=== PATIENT | female | born 1990 | race Caucasian/White ===

== ENCOUNTER 2018-12-24 19:04 | Inpatient (IN) ==
[2018-12-24] MEDS ORDERED: OXYTOCIN 30 UNITS/500 ML BAG IV PRN (20:32)
[2018-12-24] MEDS ORDERED: LACTATED RINGER'S 1,000 ML IV PRN ×2 (20:32→22:14)
--- NOTE | 2018-12-24 20:38 | History & Physical Report ---
Date of Service December 24, 2018 Assessment & Plan (1) Uterine contractions at greater than 20 weeks of gestation: 28 yo at 38.6 wks with painful ctxs, cervical change VSS Afebrile, FHR reassuring GBS negative Plan admit, labs, IVF, Monitor, epidural for pain History of Present Illness Chief Complaint: Contractions Primary Care Provider: Laura Tong PA-C Patient is a 28 yo at 38.6 wks who has been feeling ctxs since 2 pm this afternoon She ws in offcie and was checked by APOORVA [facility]. Her cervix was 1/ 20%/ -3 She was sent home Contractions got closer and more painful after 5 pm Pain is 8/10 No LOF/VB +FM Her has been uncomplicated GBS negative Her cervix changed from 1 /40% to 3/ 70%/ -2 with bulging bag in1 hour here She desires epidural for pain Allergies Allergy/AdvReac Type Severity Reaction Status Date / Time hydrocodone AdvReac Intermediate vomiting Verified 12/14/18 13:15 Home Medications Home Medications Medication Instructions Recorded Confirmed Type vit no.[id number] 1 tab PO DAILY 12/14/18 12/14/18 History [ Vitamin] Patient History Medical History Pelvic adnexal fluid collection Pelvic pain Positive test No significant active problems Surgical History S/P D&C (status post dilation and curettage) S/P wisdom tooth extraction Social History Preferred Language: Upper Sorbian Communication Ability: Effective Visual Impairment: No Limitations Beliefs That Will Affect Care: None marital status: Current Living Situation: Spouse Current Living Situation Comment: charlie batista 8 yo [employer] and daughter Feels Safe at Home: Yes Safety Concerns: Feels Safe At This Time Smoking Status: Never smoker Tobacco Type: smokeless tobacco Second Hand Exposure: No Hx Alcohol Use: No Hx Substance Use: No OB History FT in 2016 [employer] History No h/o any STD's Review of Systems All systems reviewed & are unremarkable except as noted in HPI & below Physical Exam Constitutional: WD/WN, vitals as above well developed and + acute distress Results & Data Vital Signs (Past 12 Hours) Vital Signs Pulse Resp BP 12/24/18 19:28 18 12/24/18 19:16 95 H 109/64 Monitoring External Monitor Categ I Tocodynamometer Ctxs q 2-3 min
[2018-12-24] MEDS ORDERED: LACTATED RINGER'S 1,000 ML IV SCH (20:45)
[2018-12-24] MEDS ORDERED: BUPIVACAINE 0.25% 30 ML VIAL ONE (20:53)
[2018-12-24] MEDS ORDERED: fentaNYL 2MCG/ML ROPIV 1.25MG/ML 100 ML BAG EPI ONE (20:54)
[2018-12-24] MEDS ORDERED: fentaNYL citrate 100 MCG/2 ML VIAL ONE (20:54)
[2018-12-24] MEDS ORDERED: ePHEDrine sulfate 50 MG/ML AMP ONE (20:54)
[2018-12-24 21:32] LABS: Hematocrit (blood only) 32.6 % (37-47); Hemoglobin 11.1 g/dL (12.0-16.0); Mean Corpuscular Volume 91.8 fL (80-100); Mean Platelet Volume 11.2 fL (7.4-10.4); Platelet Count 177 K/uL (130-400); RDW Coefficient of Variation 14.1 % (11.5-14.5); RDW Standard Deviation 47.1 fL (36.4-46.3); Red Blood Count 3.55 M/uL (4.2-5.4); White Blood Count 14.02 K/uL (4.8-10.8)
--- NOTE | 2018-12-24 21:48 | Anesthesiology Consultation ---
Date of Service December 24, 2018 Assessment & Plan Chart Review Chart Review: Patient NOT seen in Pre Admission Testing and Acceptable Risk for Labor Epidural Consults Requested none ASA ASA2 Proposed Anesthesia Anesthesia Type: Labor Epidural Risk / Benefits Reviewed With: PT / POA / Parent / Guardian, Accepts Plan and Informed Consent Obtained History Height/Weight Height: 5 ft 7 in Weight: 80.286 kg Allergies Allergy/AdvReac Type Severity Reaction Status Date / Time hydrocodone AdvReac Intermediate vomiting Verified 12/14/18 13:15 Medications Home Medications Medication Instructions Recorded Confirmed Last Taken vit no.[id number] 1 tab PO DAILY 12/14/18 12/24/18 12/24/18 09:00 [ Vitamin] Active Medications Generic Name Dose Route Start Last Admin Trade Name Freq PRN Reason Stop Dose Admin Lactated Ringer's 1,000 mls @ 999 mls/hr 12/24/18 20:32 12/24/18 21:38 Lr IV 01/23/19 20:31 Infused .Q1H1M PRN Infusion Pre-Anesthesia Lactated Ringer's 1,000 mls @ 150 mls/hr 12/24/18 20:45 12/24/18 21:37 Lr IV 12/26/18 20:44 150 mls/hr .Q6H40M JUVENCIO Administration NPO Date Last Intake of Fluids: 12/24/18 Time Last Intake of Fluids: 17:00 Date Last Intake of Solids: 12/24/18 Time Last Intake of Solids: 17:00 Past Medical History Medical History Pelvic adnexal fluid collection Pelvic pain Positive test No significant active problems Exercise / Class Metabolic Activity II 4-5 Yardwork/Stairs/Walk up hill Past Surgical History Surgical History S/P D&C (status post dilation and curettage) S/P wisdom tooth extraction Past Anesthesia History No Hx of Anesthesia Complications and No Family Hx of Anesthesia Complications History of PONV No Hx of PONV and No Hx of Motion Sickness Social History Smoking Status: Never smoker tobacco type: smokeless tobacco Hx Alcohol Use: No Alcohol type: wine alcohol intake frequency: a few times a week Hx Substance Use: No substance use type: does not use Physical Exam Vital Signs Last Vital Signs Pulse 92 H 12/24/18 21:42 Resp 18 12/24/18 19:28 BP 109/64 12/24/18 19:16 Pulse Ox 100 12/24/18 21:42 Constitutional + obese ENMT Mouth: no dentition abnormality Thyromental Distance: > or= 3.5 Finger Breadths Mallampati Class: II Neck normal visual inspection and trachea midline; neck extension not limited Respiratory normal respiratory effort Auscultation: lungs clear to auscultation bilaterally Cardiovascular Rate/Rhythm: regular rate and regular rhythm Heart Sounds: no murmur Musculoskeletal Spine: lumbar spine normal to inspection; normal cervical ROM Neurologic moves all extremities Motor/Sensory: no sensory deficit Psychiatric Orientation: alert and oriented x 3 Testing Laboratory Results 12/24/18 20:51
[2018-12-24] MEDS ORDERED: fentaNYL 2MCG/ML ROPIV 1.25MG/ML 100 ML BAG EPI PRN (22:14)
[2018-12-24] MEDS ORDERED: NALOXONE HCL 0.4 MG/1 ML VIAL/CARP IV PRN (22:14)
[2018-12-24] MEDS ORDERED: PROMETHAZINE HCL 25 MG in SODIUM CHLORIDE 0.9% 50 ML IV PRN (22:14)
[2018-12-24] MEDS ORDERED: ONDANSETRON INJ 2 MG/ML 2 ML VIAL IV PRN (22:14)
[2018-12-24] MEDS ORDERED: NALOXONE HCL 1 MG in SODIUM CHLORIDE 0.9% 1000ML 1,000 ML IV PRN (22:14)
[2018-12-24] MEDS ORDERED: ePHEDrine sulfate 50 MG/ML AMP IV PRN (22:14)
[2018-12-24] MEDS ORDERED: NALBUPHINE HCL INJ 10 MG/ML AMP IV PRN (22:14)
[2018-12-24] MEDS ORDERED: DiphenhydrAMINE HCL 50 MG/ML VIAL IV PRN (22:14)
--- NOTE | 2018-12-24 23:05 | Obstetrical Progress Note ---
Date of Service December 24, 2018 Subjective Patient is reevaluated She feels comfortable now, received epidural VE: 4/ 80%/-2, bulging bag, AROM clear fluid FHR categ I, except 1 isolated variable decel to 90's for about 50 sec, recovered spontaneously [place] ctxs q 2-3 min Continue to monitor closely Anticipate Results & Data Vital Signs (Past 12 Hours) Vital Signs Pulse Resp BP Pulse Ox 12/24/18 23:02 98 H 100 12/24/18 22:58 75 116/57 L 12/24/18 22:57 86 100 12/24/18 22:52 80 100 12/24/18 22:47 85 100 12/24/18 22:42 91 H 115/69 100 12/24/18 22:37 90 100 12/24/18 22:32 99 H 100 12/24/18 22:27 89 114/66 100 12/24/18 22:22 87 99 12/24/18 22:17 88 100 12/24/18 22:12 87 117/64 100 12/24/18 22:09 81 117/60 12/24/18 22:07 92 H 99 12/24/18 22:06 95 H 121/66 12/24/18 22:03 101 H 121/66 12/24/18 22:02 95 H 100 12/24/18 22:00 94 H 126/68 12/24/18 21:57 102 H 135/67 100 12/24/18 21:55 98 H 129/68 12/24/18 21:52 99 H 100 12/24/18 21:50 100 H 91 12/24/18 21:47 90 100 12/24/18 21:46 93 H 124/55 L 12/24/18 21:44 91 H 93 12/24/18 21:42 92 H 100 12/24/18 19:28 18 12/24/18 19:16 95 H 109/64
[2018-12-25] MEDS ORDERED: DIPHTHERIA/TETANUS/PERTUSSIS 0.5 ML SYR/VIAL IM ONE (01:41)
[2018-12-25] MEDS ORDERED: ACETAMINOPHEN 325 MG TAB PO PRN (01:41)
[2018-12-25] MEDS ORDERED: BISACODYL 10 MG SUPP PR PRN (01:41)
[2018-12-25] MEDS ORDERED: SUPERCREAM 0.870% 15 GM JAR EXT PRN (01:41)
[2018-12-25] MEDS ORDERED: OXYTOCIN 30 UNITS/500 ML BAG IV PRN (01:41)
[2018-12-25] MEDS ORDERED: BENZOCAINE 20% AER SPR 82.5 GM CAN EXT PRN (01:41)
[2018-12-25] MEDS ORDERED: HYDROCORTISONE ACETATE 25 MG SUPP PR PRN (01:41)
--- NOTE | 2018-12-25 02:30 | Delivery Summary ---
DATE OF OPERATION: 12/25/2018 TIME OF DELIVERY OF BABY: 1:26 a.m. TIME OF DELIVERY OF PLACENTA: 1:34 a.m. DETAILS OF DELIVERY: The patient was found to be fully dilated and desired to push. She pushed through 3 contractions and delivered the head without difficulty. Shoulders were delivered with the last push. Baby was handed off to the mother where mouth and nose were suctioned. Cord was clamped x2 and cut at 1 minute delay. Cord blood was obtained. The vagina and perineum were checked for lacerations. There was a small first-degree laceration on the posterior fourchette, hymenal ring. It was repaired with 3-0 Vicryl with a [id number] stitch x1 and excellent hemostasis was achieved. Rest of the vagina and perineum were intact. Placenta was found to be in the vagina and delivered spontaneous as intact and complete. Uterus was explored and found to be empty. Lower segment was cleared of all clots and debris. EBL was 100 mL. Fundus was firm. Mom and baby tolerated the procedure well. Sponge, lap, and needle count was correct x2. Baby was a viable female infant, Apgars 9/10. Weight 3366 gr. No complications happened. I was present during whole procedure. I attest to the content of the Intraoperative Record and any orders documented therein. Any exceptions are noted below. MTDD
[2018-12-25] MEDS: IBUPROFEN 600 MG TAB PO PRN ×5 (03:24→22:16)
--- NOTE | 2018-12-25 08:35 | Anesthesia Procedure Note ---
Date of Service December 25, 2018 Anesthesia Post Epidural Note Vital Signs Vital Signs: Temp Pulse Resp BP Pulse Ox 37.2 C 79 18 98/65 L 98 12/25/18 05:00 12/25/18 05:00 12/25/18 05:00 12/25/18 05:00 12/25/18 01:32 Notes Mental Status: alert / awake / arousable and participated in evaluation Nausea / Vomiting: adequately controlled Pain: adequately controlled Airway Patency, RR, SpO2: stable & adequate BP & HR: stable & adequate Hydration State: stable & adequate Neuraxial Anesthesia: was administered and sensory block is resolving Anesthetic Complications: no major complications apparent Epidural: Removed without complications and With tip intact
[2018-12-25] MEDS: PRENATAL VITAMIN 1 TAB PO SCH (09:30)
[2018-12-25] MEDS: FERROUS SULFATE 325 MG TAB PO SCH (09:30)
[2018-12-25] MEDS: DOCUSATE SODIUM 100 MG CAP PO SCH ×2 (09:30→22:11)
[2018-12-25] MEDS ORDERED: SODIUM CHLORIDE 0.65% NA SOLN 45 ML (OCEAN) ONE (23:26)
[2018-12-26] MEDS: IBUPROFEN 600 MG TAB PO PRN (06:32)
[2018-12-26 06:51] LABS: Hematocrit (blood only) 30.4 % (37-47); Hemoglobin 10.1 g/dL (12.0-16.0); Mean Corpuscular Hgb Conc 33.2 g/dL (32-36); Mean Corpuscular Volume 93.5 fL (80-100); Platelet Count 141 K/uL (130-400); RDW Coefficient of Variation 14.5 % (11.5-14.5); RDW Standard Deviation 49.7 fL (36.4-46.3); Red Blood Count 3.25 M/uL (4.2-5.4); White Blood Count 8.65 K/uL (4.8-10.8)
--- NOTE | 2018-12-26 09:38 | Obstetrical Progress Note ---
Date of Service December 26, 2018 Subjective Patient is seen and examined. She feels well, no complaints. Likes to be discharged. Ambulating without dizziness Voiding without difficulty Tolerating regular diet with out N&V Bleeding is minimal No fever/ chills/ CP/ SOB/ N&V/ Leg pain Breast feeding without problems 12/26/18 Range/Units 06:26 WBC 8.65 (4.8-10.8) K/uL RBC 3.25 L (4.2-5.4) M/uL Hgb 10.1 L (12.0-16.0) g/dL Hct 30.4 L (37-47) % MCV 93.5 (80-100) fL MCH 31.1 (25-34) pg MCHC 33.2 (32-36) g/dL RDW Std Deviation 49.7 H (36.4-46.3) fL RDW Coeff of Porfirio 14.5 (11.5-14.5) % Plt Count 141 (130-400) K/uL MPV 11.0 H (7.4-10.4) fL Vital Signs Temp Pulse Resp BP Pulse Ox 12/26/18 07:52 37.0 C 81 20 112/76 12/25/18 23:50 36.9 C 74 18 107/63 12/25/18 19:30 37.1 C 85 18 107/66 100 12/25/18 15:40 36.6 C 80 18 107/70 98 12/25/18 12:30 37 C 79 20 122/75 PE: General: Alert, orientedx3, NAD Abd: soft, NT, fundus firm, below Umbilicus Perineum intact, Lochia rubra minimal Ext; NT, no edema AP: 28 yo s/p , ppd# 1 VSS Afebrile doing well Continue routine care Instructions were given when to call All questions were answered D/C home , f/u in office Results & Data Vital Signs (Past 12 Hours) Vital Signs Temp Pulse Resp BP 12/26/18 07:52 37.0 C 81 20 112/76 12/25/18 23:50 36.9 C 74 18 107/63
[2018-12-26] MEDS: FERROUS SULFATE 325 MG TAB PO SCH (09:52)
[2018-12-26] MEDS: DOCUSATE SODIUM 100 MG CAP PO SCH (09:52)
[2018-12-26] MEDS: PRENATAL VITAMIN 1 TAB PO SCH (09:52)
[2018-12-26] MEDS ORDERED: BISACODYL 5 MG TABEC PO SCH (20:00)
== END 2018-12-26 11:50 | disposition home or self-care (01) | DRG 807 ==
LOC: OPB 19:04 → 4S1 19:05 → 4S2 12-25 04:50